=== PATIENT | male | born 1990 | race Caucasian/White ===

== ENCOUNTER 2016-04-06 10:15 | Emergency (ER) | payer MEDICARE, MEDICAID ==
--- NOTE | 2016-04-06 10:22 | ER Document Report ---
ED Medical Screen (RME) - General Chief Complaint: Cough Stated Complaint: COUGH Time seen by provider: 10:20 Mode of Arrival: Ambulatory Information source: Patient Notes: 35-year-old male presents to ED for cough cold for 2 weeks. Denies fever nausea or vomiting denies chest pain. TRAVEL OUTSIDE OF THE [place] IN LAST 30 DAYS: No - HPI Onset: Other - 2 weeks Onset/Duration: Gradual, Persistent Quality of pain: No pain Severity: None Pain Level: Denies Associated Symptoms: Cough (nonproductive). denies: Body/muscle aches, Fever Exacerbated by: Denies Relieved by: Denies Similar symptoms previously: Yes Recently seen / treated by doctor: No - Related Data Smoking: Non-smoker Frequency of alcohol use: None Drug Abuse: None Allergies/Adverse Reactions: Penicillins Allergy (Severe, Verified 04/06/16 10:17) Hives Past Medical History - Past Medical History Cardiac Medical History: Denies: Hx Coronary Artery Disease, Hx Heart Attack, Hx Hypertension Pulmonary Medical History: Denies: Hx Asthma, Hx Bronchitis, Hx COPD, Hx Pneumonia Neurological Medical History: Reports: Hx Seizures - as child. Denies: Hx Cerebrovascular Accident GI Medical History: Denies: Hx Hepatitis, Hx Hiatal Hernia, Hx Ulcer Musculoskeltal Medical History: Denies Hx Arthritis Infectious Medical History: Denies: Hx Hepatitis Past Surgical History: Denies: Hx Open Heart Surgery, Hx Pacemaker - Immunizations Hx Diphtheria, Pertussis, Tetanus Vaccination: Yes
[2016-04-06] MEDS ORDERED: BENZONATATE 100 MG CAPSULE PO ONE (10:41)
--- NOTE | 2016-04-06 10:45 | ER Document Report ---
ED General - General Chief Complaint: Cough Stated Complaint: COUGH Mode of Arrival: Ambulatory Notes: 25-year-old male here with complaints of cough productive of clear sputum sneezing runny nose over the past 2 weeks. He has not had any fevers or chills. He states that his grandmother was initially sick with similar symptoms and then he became sick. His mother then developed the same symptoms however she improved within 7 days. He has tried TheraFlu and DayQuil with some relief. He has also tried Tessalon Perles and "they are absolutely wonderful". TRAVEL OUTSIDE OF THE [place] IN LAST 30 DAYS: No - Related Data Allergies/Adverse Reactions: Penicillins Allergy (Severe, Verified 04/06/16 10:17) Hives Past Medical History - General Information source: Patient - Social History Smoking Status: Never Smoker Chew tobacco use (# tins/day): No Frequency of alcohol use: None Drug Abuse: None Family History: Reviewed & Not Pertinent Patient has suicidal ideation: No Patient has homicidal ideation: No - Past Medical History Cardiac Medical History: Denies: Hx Coronary Artery Disease, Hx Heart Attack, Hx Hypertension Pulmonary Medical History: Denies: Hx Asthma, Hx Bronchitis, Hx COPD, Hx Pneumonia Neurological Medical History: Reports: Hx Seizures - as child. Denies: Hx Cerebrovascular Accident Renal/ Medical History: Denies: Hx Peritoneal Dialysis GI Medical History: Denies: Hx Hepatitis, Hx Hiatal Hernia, Hx Ulcer Musculoskeltal Medical History: Denies Hx Arthritis Infectious Medical History: Denies: Hx Hepatitis Past Surgical History: Denies: Hx Open Heart Surgery, Hx Pacemaker - Immunizations Hx Diphtheria, Pertussis, Tetanus Vaccination: Yes Review of Systems - Review of Systems Notes: See history of present illness for pertinent positive review of systems; otherwise all review of systems have been reviewed and are negative Physical Exam - Vital signs Vitals: Temp Pulse Resp BP Pulse Ox 98.8 F 122 H 16 98/71 L 97 04/06/16 10:19 04/06/16 10:19 04/06/16 10:19 04/06/16 10:04/06/16 10:19 - Notes Notes: PHYSICAL EXAMINATION: GENERAL: Well-appearing and in no acute distress. HEAD: Atraumatic, normocephalic. EYES: Pupils equal round and reactive to light, extraocular movements intact, sclera anicteric, conjunctiva are normal. ENT: nares patent, oropharynx minimal erythema without tonsillar swelling or exudates. Moist mucous membranes. NECK: Normal range of motion, supple without lymphadenopathy LUNGS: CTAB and equal. No wheezes rales or rhonchi. HEART: Regular rhythm without murmurs; mildly tachycardic ABDOMEN: Soft, no tenderness. No guarding, no rebound EXTREMITIES: Normal range of motion, no pitting edema. No cyanosis. NEUROLOGICAL: Cranial nerves grossly intact. Normal sensory/motor exams. PSYCH: Normal mood, normal affect. SKIN: Warm, Dry, normal turgor, no rashes or lesions noted Course - Re-evaluation Re-evalutation: 04/06/16 10:44 MEDICAL DECISION MAKING: Concern for upper respiratory infection versus pneumonia versus allergic rhinitis Will obtain x-ray to evaluate for pneumonia and give dose of Tessalon Perle Patient understands and agrees to the plan of care 04/06/16 11:33 CXR negative for pneumonia Will treat w azithromycin as this may be walking pneumonia Instructed f/u PCP next few days Home w rx azithromycin and tessalon perles - Vital Signs Vital signs: Temp Pulse Resp BP Pulse Ox 98.8 F 122 H 20 98/71 L 97 04/06/16 10:19 04/06/16 10:19 04/06/16 10:45 04/06/16 10:19 04/06/16 10:19 Discharge - Discharge Clinical Impression: Upper respiratory infection Qualifiers: URI type: unspecified viral URI Qualified Code(s): J06.9 - Acute upper respiratory infection, unspecified; B97.89 - Other viral agents as the cause of diseases classified elsewhere Condition: Good Disposition: HOME, SELF-CARE Additional Instructions: You were seen in the emergency department at [facility]. Finish antibiotics and do not skip any doses. Use the cough medication as needed. Please followup with your primary physician in the next few days for further management/evaluation. Please return to the emergency department for worsening of symptoms or any symptom that you deem to be concerning or life-threatening. Thank you for allowing us to be part of your care. Prescriptions: Benzonatate [Tessalon Perle 100 mg Capsule] 100 mg PO Q8HP PRN #20 cap PRN Reason: Azithromycin [Zithromax 250 mg Tablet] 250 mg PO ASDIR #4 tablet
[2016-04-06] MEDS ORDERED: AZITHROMYCIN 250 MG TABLET PO ONE (10:46)
[2016-04-06 11:40] VITALS: BP 110/70
== END 2016-04-06 11:42 | disposition home or self-care (01) ==
LOC: ER 10:15
DX: J06.9 Acute upper respiratory infection, unspecified (principal); B97.89 Other viral agents as the cause of diseases classified elsewhere; R05 Cough; R06.7 Sneezing; R09.89 Other specified symptoms and signs involving the circulatory and respiratory systems
CPT/HCPCS: 99283; 71020; A9270 ×2

== ENCOUNTER 2016-04-27 20:46 | Emergency (ER) | payer MEDICARE, MEDICAID ==
--- NOTE | 2016-04-27 21:16 | ER Document Report ---
ED Medical Screen (RME) - General Stated Complaint: COUGH Notes: patient has a history of asthma and has run out nebulizers for atrovent. lungs CTAB I have greeted and performed a rapid initial assessment of this patient. A comprehensive ED assessment and evaluation of the patient, analysis of test results and completion of the medical decision making process will be conducted by additional ED providers. TRAVEL OUTSIDE OF THE [place] IN LAST 30 DAYS: No - Related Data Allergies/Adverse Reactions: Penicillins Allergy (Severe, Verified 04/06/16 10:17) Hives Past Medical History - Past Medical History Cardiac Medical History: Denies: Hx Coronary Artery Disease, Hx Heart Attack, Hx Hypertension Pulmonary Medical History: Denies: Hx Asthma, Hx Bronchitis, Hx COPD, Hx Pneumonia Neurological Medical History: Reports: Hx Seizures - as child. Denies: Hx Cerebrovascular Accident Renal/ Medical History: Denies: Hx Peritoneal Dialysis GI Medical History: Denies: Hx Hepatitis, Hx Hiatal Hernia, Hx Ulcer Musculoskeltal Medical History: Denies Hx Arthritis Infectious Medical History: Denies: Hx Hepatitis Past Surgical History: Denies: Hx Open Heart Surgery, Hx Pacemaker - Immunizations Hx Diphtheria, Pertussis, Tetanus Vaccination: Yes
[2016-04-27 21:18] VITALS: BP 100/65
--- NOTE | 2016-04-27 22:40 | ER Document Report ---
ED General - General Chief Complaint: Medication Refill Stated Complaint: COUGH Notes: Patient is a 25-year-old male presents with complaint of being out of his asthma inhaler. He's had some coughing congestion. No wheezing. No fevers. No other complaints at this time. He presents with a text from his mom on this found that he has been read. The text says that he needs to inhalers. He needs one for school and 1 for gym. She asks that we label the inhalers as 1 for gym. She also text to ask if he needed antibiotics or prednisone. Patient himself says he otherwise feels well. His no further concerns. He says he has a learning disability and that is why he wanted to repeat a text from his mom in case he forgot something to tell me. TRAVEL OUTSIDE OF THE [place] IN LAST 30 DAYS: No - Related Data Allergies/Adverse Reactions: Penicillins Allergy (Severe, Verified 04/27/16 21:14) Hives Past Medical History - Social History Smoking Status: Unknown if Ever Smoked Frequency of alcohol use: None Drug Abuse: None Family History: Reviewed & Not Pertinent Patient has suicidal ideation: No Patient has homicidal ideation: No - Past Medical History Cardiac Medical History: Denies: Hx Coronary Artery Disease, Hx Heart Attack, Hx Hypertension Pulmonary Medical History: Denies: Hx Asthma, Hx Bronchitis, Hx COPD, Hx Pneumonia Neurological Medical History: Reports: Hx Seizures - as child. Denies: Hx Cerebrovascular Accident Renal/ Medical History: Denies: Hx Peritoneal Dialysis GI Medical History: Denies: Hx Hepatitis, Hx Hiatal Hernia, Hx Ulcer Musculoskeltal Medical History: Denies Hx Arthritis Infectious Medical History: Denies: Hx Hepatitis Past Surgical History: Denies: Hx Open Heart Surgery, Hx Pacemaker - Immunizations Hx Diphtheria, Pertussis, Tetanus Vaccination: Yes Review of Systems - Review of Systems Notes: My Normal Review Basic REVIEW OF SYSTEMS: CONSTITUTIONAL : Denies fever, chills, or sweats. Denies recent illness. EENT: Some nasal congestion RESPIRATORY: Some cough GASTROINTESTINAL: Denies abdominal pain. Denies nausea, vomiting, or diarrhea. Denies constipation. Last BM: MUSCULOSKELETAL: Denies neck or back pain or joint pain or swelling. SKIN: Denies rash or skin lesions. NEUROLOGICAL: Denies altered mental status or loss of consciousness. ALL OTHER SYSTEMS REVIEWED AND NEGATIVE. Physical Exam - Vital signs Vitals: Temp Pulse Resp BP Pulse Ox 97.8 F 77 18 100/65 98 04/27/16 21:14 04/27/16 21:14 04/27/16 21:14 04/27/16 21:14 04/27/16 21:14 - Notes Notes: General Appearance: Well nourished, alert, cooperative, no acute distress, no obvious discomfort. Very well-appearing. No cough or nasal congestion during exam. Vitals: reviewed, See vital signs table. Head: no swelling or tenderness to the head Eyes: PERRL, EOMI, Conjuctiva clear Mouth: No decreasd moisture Throat: No tonsillar inflammation, No airway obstruction, No lymphadenopathy Neck: Supple, no neck tenderness, No thyromegaly Lungs: No wheezing, No rales, No rhonci, No accessory muscle use, good air exchange bilaterally. Heart: Normal rate, Regular rythm, No murmur, no rub Abdomen: Normal BS, soft, No rigidity, No abdominal tenderness, No guarding, no rebound, no abdominal masses, no organomegaly Extremities: good pulses in all extremities, no swelling or tenderness in the extremities, no edema. Skin: warm, dry, appropriate color, no rash Neuro: speech clear, oriented x 3, normal affect, responds appropriately to questions. Course - Vital Signs Vital signs: Temp Pulse Resp BP Pulse Ox 97.8 F 77 18 100/65 98 04/27/16 21:14 04/27/16 21:14 04/27/16 21:14 04/27/16 21:14 04/27/16 21:14 - Transfer of Care Notes: 04/27/16 22:45 Patient is very well-appearing. He has no wheezing on exam. His no increased work of breathing. He had no cough during exam. His no congestion on exam. I did give him 1 inhaler here and wrote a prescription for second inhaler. I informed him to have his mother labeled inhalers for him as to which one he should he wants for gym in which one he wants for other. Patient has no wheezing and no fever. I do not think he needs steroids or antibiotics this time. Patient encouraged return to ER if he feels worse or has any further concerns. Patient agrees with plan will be discharged home. Dictation of this chart was performed using voice recognition software; therefore, there may be some unintended grammatical errors. Discharge - Discharge Clinical Impression: Asthma Qualifiers: Asthma severity: unspecified severity Asthma complication type: uncomplicated Qualified Code(s): J45.909 - Unspecified asthma, uncomplicated Condition: Good Disposition: HOME, SELF-CARE Additional Instructions: Please return to ER immediately if you have a lot of wheezing, difficulty breathing, fevers, or feel unwell. You can use your inhaler as 2 puffs every 4 hours as needed for difficulty breathing. Prescriptions: Albuterol Sulfate [Proair HFA Inhalation Aerosol 8.5 gm MDI] 2 puff IH Q4H PRN # 1 mdi PRN Reason: Forms: Return to School
[2016-04-27] MEDS ORDERED: ALBUTEROL SULFATE HFA (90 MCG/PUFF) 8 GM MDI (1 MDI/ER DISP) IH SCH (22:45)
== END 2016-04-27 23:03 | disposition home or self-care (01) ==
LOC: ER 20:46
DX: J45.909 Unspecified asthma, uncomplicated (principal); R05 Cough; R09.81 Nasal congestion
CPT/HCPCS: 99281; J3490

== ENCOUNTER 2016-04-29 05:49 | Emergency (ER) | payer MEDICAID, MEDICARE ==
--- NOTE | 2016-04-29 07:10 | ER Document Report ---
ED General - General Chief Complaint: Flu Symptoms Stated Complaint: FLU LIKE SYMPTOMS TRAVEL OUTSIDE OF THE [place] IN LAST 30 DAYS: No - HPI Patient complains to provider of: cough sinus pressure wheezing Notes: Patient coming in with about states symptoms ongoing for the last 3-4 days. Patient states he was recent seen and was given a prescription for an inhaler stated that he also at that time thought he would improve with prednisone and want to ask for vials of albuterol however stated that the provider was dizzy before the past with his medications. Patient otherwise states no fevers no recent antibiotics no recent steroids. Patient otherwise is alert Distress upon my evaluation. - Related Data Allergies/Adverse Reactions: Penicillins Allergy (Severe, Verified 04/27/16 21:14) Hives Past Medical History - Social History Smoking Status: Unknown if Ever Smoked Family History: Reviewed & Not Pertinent Patient has suicidal ideation: No Patient has homicidal ideation: No - Past Medical History Cardiac Medical History: Denies: Hx Coronary Artery Disease, Hx Heart Attack, Hx Hypertension Pulmonary Medical History: Denies: Hx Asthma, Hx Bronchitis, Hx COPD, Hx Pneumonia Neurological Medical History: Reports: Hx Seizures - as child. Denies: Hx Cerebrovascular Accident Renal/ Medical History: Denies: Hx Peritoneal Dialysis GI Medical History: Denies: Hx Hepatitis, Hx Hiatal Hernia, Hx Ulcer Musculoskeltal Medical History: Denies Hx Arthritis Infectious Medical History: Denies: Hx Hepatitis Past Surgical History: Denies: Hx Open Heart Surgery, Hx Pacemaker - Immunizations Hx Diphtheria, Pertussis, Tetanus Vaccination: Yes Review of Systems - Review of Systems Constitutional: No symptoms reported EENT: No symptoms reported Cardiovascular: No symptoms reported Respiratory: Cough Gastrointestinal: No symptoms reported Genitourinary: No symptoms reported Male Genitourinary: No symptoms reported Musculoskeletal: No symptoms reported Skin: No symptoms reported Hematologic/Lymphatic: No symptoms reported Neurological/Psychological: No symptoms reported -: Yes All other systems reviewed and negative Physical Exam - Vital signs Vitals: Temp Pulse BP Pulse Ox 98.0 F 79 121/64 95 04/29/16 05:54 04/29/16 05:54 04/29/16 05:54 04/29/16 05:54 Interpretation: Normal - General General appearance: Appears well, Alert - HEENT Head: Normocephalic, Atraumatic Eyes: Normal Pupils: PERRL - Respiratory Respiratory status: No respiratory distress Chest status: Nontender Breath sounds: Normal Chest palpation: Normal - Cardiovascular Rhythm: Regular Heart sounds: Normal auscultation Murmur: No - Abdominal Inspection: Normal Distension: No distension Bowel sounds: Normal Tenderness: Nontender Organomegaly: No organomegaly - Back Back: Normal, Nontender - Extremities General upper extremity: Normal inspection, Nontender, Normal color, Normal ROM , Normal temperature General lower extremity: Normal inspection, Nontender, Normal color, Normal ROM , Normal temperature, Normal weight bearing. No: Columba's sign - Neurological Neuro grossly intact: Yes Cognition: Normal Orientation: AAOx4 Kala Coma Scale Eye Opening: Spontaneous Kala Coma Scale Verbal: Oriented [place] Coma Scale Motor: Obeys Commands [place] Coma Scale Total: 15 Speech: Normal Motor strength normal: LUE, RUE, LLE, RLE Sensory: Normal - Psychological Associated symptoms: Normal affect, Normal mood - Skin Skin Temperature: Warm Skin Moisture: Dry Skin Color: Normal Course - Re-evaluation Re-evalutation: 04/29/16 13:07 Patient will be treated with albuterol and prednisone. Prescription provided for nebulizer vials. Patient will be discharged home - Vital Signs Vital signs: Temp Pulse Resp BP Pulse Ox 97.9 F 70 20 113/65 98 04/29/16 07:23 04/29/16 07:23 04/29/16 07:23 04/29/16 07:23 04/29/16 07:23 Discharge - Discharge Clinical Impression: Asthma Qualifiers: Asthma severity: unspecified severity Asthma complication type: uncomplicated Qualified Code(s): J45.909 - Unspecified asthma, uncomplicated URI (upper respiratory infection) Qualifiers: URI type: supraglottitis Airway obstruction: without obstruction Qualified Code (s): J04.30 - Supraglottitis, unspecified, without obstruction Condition: Good Disposition: HOME, SELF-CARE Instructions: Upper Respiratory Illness ([facility]), Asthma ([facility]) Additional Instructions: Take medication as prescribed. Prescriptions: Albuterol Sulfate [Albuterol Sulfate 2.5mg/3 mL] 2.5 mg IH Q4 #30 ml Prednisone [Deltasone 20 mg Tablet] 40 mg PO DAILY 5 Days
[2016-04-29 07:25] VITALS: BP 113/65
== END 2016-04-29 07:25 | disposition home or self-care (01) ==
LOC: ER 05:49
DX: J45.909 Unspecified asthma, uncomplicated (principal); J04.30 Supraglottitis, unspecified, without obstruction; Z88.0 Allergy status to penicillin
CPT/HCPCS: 99283

== ENCOUNTER 2016-10-19 20:06 | Emergency (ER) | payer MEDICARE, MEDICAID ==
[2016-10-19 20:30] VITALS: BP 127/76
== END 2016-10-19 21:05 | disposition left against medical advice (07) ==
LOC: ER 20:06
DX: Z53.9 Procedure and treatment not carried out, unspecified reason (principal); L98.9 Disorder of the skin and subcutaneous tissue, unspecified

== ENCOUNTER 2016-10-20 07:05 | Emergency (ER) | payer MEDICARE, MEDICAID ==
[2016-10-20 07:12] VITALS: BP 120/72
--- NOTE | 2016-10-20 07:43 | ER Document Report ---
ED General - General Chief Complaint: Skin Problem Stated Complaint: SKIN PROBLEM Time Seen by Provider: 10/20/16 07:35 TRAVEL OUTSIDE OF THE [place] IN LAST 30 DAYS: No - HPI Patient complains to provider of: Poison [place] left arm Notes: Patient is coming to the ER today for evaluation of poison madison on his left arm. Patient states that this is very pruritic. Patient denies taking or using any Benadryl cream steroid cream or oral Benadryl for his symptoms is that he does not have any at home. Patient otherwise denies any past medical history. Patient was initially triaged around 11:00 night prior also at that time requesting evaluation for his poison madison and a refill of his asthma inhalers. Patient alert prior to being seen. Patient denies any fever chills nausea vomiting diarrhea - Related Data Allergies/Adverse Reactions: Penicillins Allergy (Severe, Verified 04/27/16 21:14) Hives Past Medical History - Social History Smoking Status: Unknown if Ever Smoked Family History: Reviewed & Not Pertinent Patient has suicidal ideation: No Patient has homicidal ideation: No - Past Medical History Cardiac Medical History: Denies: Hx Coronary Artery Disease, Hx Heart Attack, Hx Hypertension Pulmonary Medical History: Denies: Hx Asthma, Hx Bronchitis, Hx COPD, Hx Pneumonia Neurological Medical History: Reports: Hx Seizures - as child. Denies: Hx Cerebrovascular Accident Renal/ Medical History: Denies: Hx Peritoneal Dialysis GI Medical History: Denies: Hx Hepatitis, Hx Hiatal Hernia, Hx Ulcer Musculoskeltal Medical History: Denies Hx Arthritis Infectious Medical History: Denies: Hx Hepatitis Past Surgical History: Denies: Hx Open Heart Surgery, Hx Pacemaker - Immunizations Hx Diphtheria, Pertussis, Tetanus Vaccination: Yes Review of Systems - Review of Systems Constitutional: No symptoms reported EENT: No symptoms reported Cardiovascular: No symptoms reported Respiratory: No symptoms reported Gastrointestinal: No symptoms reported Genitourinary: No symptoms reported Male Genitourinary: No symptoms reported Musculoskeletal: No symptoms reported Skin: Other - rash left forearm Hematologic/Lymphatic: No symptoms reported Neurological/Psychological: No symptoms reported Physical Exam - Vital signs Vitals: Temp Pulse Resp BP Pulse Ox 98.3 F 73 16 120/72 98 10/20/16 07:06 10/20/16 07:06 10/20/16 07:06 10/20/16 07:06 10/20/16 07:06 Interpretation: Normal - General General appearance: Appears well, Alert - HEENT Head: Normocephalic, Atraumatic Eyes: Normal Pupils: PERRL - Respiratory Respiratory status: No respiratory distress Chest status: Nontender Breath sounds: Normal Chest palpation: Normal - Cardiovascular Rhythm: Regular Heart sounds: Normal auscultation Murmur: No - Abdominal Inspection: Normal Distension: No distension Bowel sounds: Normal Tenderness: Nontender Organomegaly: No organomegaly - Back Back: Normal, Nontender - Extremities General upper extremity: Normal inspection, Nontender, Normal color, Normal ROM , Normal temperature General lower extremity: Normal inspection, Nontender, Normal color, Normal ROM , Normal temperature, Normal weight bearing. No: Columba's sign - Neurological Neuro grossly intact: Yes Cognition: Normal Orientation: AAOx4 [place] Coma Scale Eye Opening: Spontaneous [place] Coma Scale Verbal: Oriented [place] Coma Scale Motor: Obeys Commands [place] Coma Scale Total: 15 Speech: Normal Motor strength normal: LUE, RUE, LLE, RLE Sensory: Normal - Psychological Associated symptoms: Normal affect, Normal mood - Skin Skin Temperature: Warm Skin Moisture: Dry Skin Color: Other - Patient with mild blistering contact dermatitis consistent with poison [place] exposure in the antecubital fossa left arm no other signs of rashes on the patient's torso Course - Re-evaluation Re-evalutation: 10/20/16 15:10 Patient will be given a prescription for prednisone encouraged to use over-the- counter Benadryl cream and tablets for control of the itching. At discharge I was informed by nursing staff that the patient's mother called requesting a shot of steroids however patient is able to tolerate p.o. no need for IM injection at this time - Vital Signs Vital signs: Temp Pulse Resp BP Pulse Ox 98.3 F 73 16 120/72 98 10/20/16 07:09 10/20/16 07:09 10/20/16 07:09 10/20/16 07:09 10/20/16 07:09 Discharge - Discharge Clinical Impression: Poison [place] dermatitis Condition: Good Disposition: HOME, SELF-CARE Instructions: Contact Dermatitis ([facility]), Poison [place] ([facility]), Use of Diphenhydramine, Topical Steroid Cream or Ointment ([facility]) Additional Instructions: Please take medication as directed. Prescriptions: Albuterol Sulfate [Proair HFA] 1 - 2 puff IH Q4 PRN #1 inhaler PRN Reason: Prednisone [Deltasone 20 mg Tablet] 3 tab PO DAILY 5 Days
== END 2016-10-20 08:01 | disposition home or self-care (01) ==
LOC: ER 07:05
DX: L23.7 Allergic contact dermatitis due to plants, except food (principal); Z88.0 Allergy status to penicillin
CPT/HCPCS: 99283

== ENCOUNTER 2017-12-24 03:19 | Emergency (ER) | payer MEDICARE, MEDICAID ==
[2017-12-24 03:25] VITALS: BP 134/87
[2017-12-24] MEDS ORDERED: PREDNISONE 20 MG TABLET PO ONE (03:46)
--- NOTE | 2017-12-24 03:53 | ER Document Report ---
ED General - General Chief Complaint: Rash Stated Complaint: RASH Time Seen by Provider: 12/24/17 03:40 Notes: Patient is a 27-year-old male who presents with complaint of a rash. He says he was working outside and exposed to poison stephanie. He has some rash on his hands and his arm. Also somewhat over the dorsum of his foot and toes from where he is wearing sandals. He says it is pruritic. Some painful. No fevers. No difficulty breathing. No other complaints at this time. TRAVEL OUTSIDE OF THE [place] IN LAST 30 DAYS: No - Related Data Allergies/Adverse Reactions: Penicillins Allergy (Severe, Verified 04/27/16 21:14) Hives Past Medical History - Social History Smoking Status: Never Smoker Frequency of alcohol use: None Drug Abuse: None Family History: Reviewed & Not Pertinent Patient has suicidal ideation: No Patient has homicidal ideation: No - Past Medical History Cardiac Medical History: Denies: Hx Coronary Artery Disease, Hx Heart Attack, Hx Hypertension Pulmonary Medical History: Denies: Hx Asthma, Hx Bronchitis, Hx COPD, Hx Pneumonia Neurological Medical History: Reports: Hx Seizures - as child. Denies: Hx Cerebrovascular Accident Renal/ Medical History: Denies: Hx Peritoneal Dialysis GI Medical History: Denies: Hx Hepatitis, Hx Hiatal Hernia, Hx Ulcer Musculoskeletal Medical History: Denies Hx Arthritis Infectious Medical History: Denies: Hx Hepatitis Past Surgical History: Denies: Hx Open Heart Surgery, Hx Pacemaker - Immunizations Hx Diphtheria, Pertussis, Tetanus Vaccination: Yes Review of Systems - Review of Systems Notes: My Normal Review Basic REVIEW OF SYSTEMS: CONSTITUTIONAL : Denies fever, chills, or sweats. Denies recent illness. EENT: Denies eye, ear, throat, or mouth pain or symptoms. Denies nasal or sinus congestion. RESPIRATORY: Denies cough, cold, or chest congestion. Denies shortness of breath, difficulty breathing, or wheezing. GASTROINTESTINAL: Denies abdominal pain. Denies nausea, vomiting, or diarrhea. Denies constipation. Last BM: SKIN: Rash Physical Exam - Vital signs Vitals: Temp Pulse Resp BP Pulse Ox 97.8 F 90 18 134/87 H 98 12/24/17 03:24 12/24/17 03:24 12/24/17 03:24 12/24/17 03:24 12/24/17 03:24 - Notes Notes: General Appearance: Well nourished, alert, cooperative, no acute distress, no obvious discomfort. Appearing. Vitals: reviewed, See vital signs table. Eyes: PERRL, EOMI, Conjuctiva clear Mouth: No decreasd moisture Neck: Supple, No swelling Lungs: No wheezing, No rales, No rhonci, No accessory muscle use, good air exchange bilaterally. Extremities: good pulses in all extremities, no swelling or tenderness in the extremities, no edema. Skin: Mild maculopapular rash is easily blanchable and pruritic. Nonpainful to palpation. Consistent with a contact dermatitis. Neuro: speech clear, oriented x 3, normal affect, responds appropriately to questions. Course - Re-evaluation Re-evalutation: 12/24/17 04:08 Patient has a rash and history consistent with poison stephanie exposure. Patient will be placed on prednisone. He does not have any respiratory or pharyngeal symptoms. I encourage him return to ER immediately for difficulty breathing, difficulty swallowing, worsening of the rash, or if he feels unwell. Patient agrees with plan will be discharged home. Dictation of this chart was performed using voice recognition software; therefore, there may be some unintended grammatical errors. - Vital Signs Vital signs: Temp Pulse Resp BP Pulse Ox 97.8 F 90 18 134/87 H 98 12/24/17 03:24 12/24/17 03:24 12/24/17 03:24 12/24/17 03:24 12/24/17 03:24 Discharge - Discharge Clinical Impression: Rash Condition: Good Disposition: HOME, SELF-CARE Additional Instructions: Please take the prednisone as prescribed. please take Benadryl as 25mg every 6 hours for itching. Please return to the ER if you have worsening of the rash, fevers, difficulty breathing, or feel unwell. Prescriptions: Prednisone 10 mg PO ASDIR #42 tablet
== END 2017-12-24 03:54 | disposition home or self-care (01) ==
LOC: ER 03:19
DX: R21 Rash and other nonspecific skin eruption (principal); L29.8 Other pruritus; Z88.0 Allergy status to penicillin
CPT/HCPCS: 99282; A9270; J7512

== ENCOUNTER 2018-01-10 01:01 | Emergency (ER) | payer MEDICARE, MEDICAID ==
[2018-01-10 01:07] VITALS: BP 123/70
--- NOTE | 2018-01-10 01:31 | ER Document Report ---
ED General - General Chief Complaint: Ankle Pain Stated Complaint: ankle pain Time Seen by Provider: 01/10/18 01:06 Mode of Arrival: Ambulatory Information source: Patient Notes: This is a 27-year-old man that presents to the emergency room with left ankle pain and swelling in after twisting the ankle. TRAVEL OUTSIDE OF THE [place] IN LAST 30 DAYS: No - HPI Onset: Last week Onset/Duration: Gradual Quality of pain: Dull Severity: Mild Pain Level: 1 Associated symptoms: denies: Chills, Fever, Shortness of breath Exacerbated by: Movement Relieved by: Remaining still Similar symptoms previously: Yes Recently seen / treated by doctor: No - Related Data Allergies/Adverse Reactions: Penicillins Allergy (Severe, Verified 04/27/16 21:14) Hives Past Medical History - General Information source: Patient - Social History Smoking Status: Unknown if Ever Smoked Cigarette use (# per day): No Chew tobacco use (# tins/day): No Frequency of alcohol use: None Drug Abuse: None Lives with: Alone Family History: Reviewed & Not Pertinent Patient has suicidal ideation: No Patient has homicidal ideation: No - Past Medical History Cardiac Medical History: Denies: Hx Coronary Artery Disease, Hx Heart Attack, Hx Hypertension Pulmonary Medical History: Denies: Hx Asthma, Hx Bronchitis, Hx COPD, Hx Pneumonia Neurological Medical History: Reports: Hx Seizures - as child. Denies: Hx Cerebrovascular Accident Renal/ Medical History: Denies: Hx Peritoneal Dialysis GI Medical History: Denies: Hx Hepatitis, Hx Hiatal Hernia, Hx Ulcer Musculoskeletal Medical History: Denies Hx Arthritis Infectious Medical History: Denies: Hx Hepatitis Past Surgical History: Denies: Hx Open Heart Surgery, Hx Pacemaker - Immunizations Hx Diphtheria, Pertussis, Tetanus Vaccination: Yes Review of Systems - Review of Systems Constitutional: denies: Chills, Fever EENT: No symptoms reported Cardiovascular: No symptoms reported Respiratory: No symptoms reported Gastrointestinal: No symptoms reported Genitourinary: No symptoms reported Male Genitourinary: No symptoms reported Musculoskeletal: See HPI Skin: No symptoms reported Hematologic/Lymphatic: No symptoms reported Neurological/Psychological: No symptoms reported Physical Exam - Vital signs Vitals: Temp Pulse Resp BP Pulse Ox 97.8 F 82 18 123/70 99 01/10/18 01:06 01/10/18 01:06 01/10/18 01:06 01/10/18 01:06 01/10/18 01:06 Notes: Physical exam: GENERAL: Patient is alert and oriented, no acute distress HEAD: Atraumatic, normocephalic. EYES: Pupils equal round and reactive to light, extraocular movements intact, sclera anicteric, conjunctiva are normal. ENT:Moist mucous membranes. NECK: Normal range of motion, supple without obvious mass. EXTREMITIES: Left knee: Full range of motion. No tenderness over the proximal fibula. Left ankle: Nontender in the medial aspect of the malleolus. Patient is tender over the distal portion of the lateral malleolus. There is swelling laterally. There is tenderness over just inferior to the malleolus. Dorsal pedal pulses good. Cap refill is good. Skin is clear. Patient does have an abrasion over the medial aspect of the proximal foot. There is no evidence of cellulitis. NEUROLOGICAL: Cranial nerves II through XII grossly intact. Normal speech, moving all extremities. PSYCH: Normal mood, normal affect. SKIN: Warm, Dry, normal turgor, no rashes or lesions noted. Course - Vital Signs Vital signs: Temp Pulse Resp BP Pulse Ox 97.8 F 82 18 123/70 99 01/10/18 01:06 01/10/18 01:06 01/10/18 01:06 01/10/18 01:06 01/10/18 01:06 - Diagnostic Test Radiology reviewed: Image reviewed - X-ray shows no obvious bony injury Discharge - Discharge Clinical Impression: Left ankle sprain Condition: Stable Disposition: HOME, SELF-CARE Additional Instructions: Use the splint for lateral support for the next week or 2. You can ice the ankle at night keep it elevated. Take ibuprofen every 4-6 hours for the next few days. Follow-up with an orthopedic surgeon for persistent pain or swelling. I left the number for the orthopedic surgeon on the chart. Referrals: PAUL CRUZ MD [ACTIVE STAFF] - Follow up as needed (This is the number for the orthopedic surgeon)
--- NOTE | 2018-01-10 01:57 | RADIOLOGY REPORT (SQ) ---
CLINICAL HISTORY: lat malleolar tender-swelling COMPARISON: None. TECHNIQUE: XR ANKLE 3 OR MORE VIEWS 01/10/2018 1:26 AM CDT FINDINGS: There is no fracture. Joint spaces are preserved. There is mild lateral soft tissue swelling. IMPRESSION: No acute osseous findings.
== END 2018-01-10 01:51 | disposition home or self-care (01) ==
LOC: ER 01:01
PROC: 2W3RX1Z Immobilization of Left Lower Leg using Splint (ICD-10-PCS; principal; 2018-01-10)
DX: M25.572 Pain in left ankle and joints of left foot (principal); Z88.0 Allergy status to penicillin; S93.402A Sprain of unspecified ligament of left ankle, initial encounter; X58.XXXA Exposure to other specified factors, initial encounter; Y93.9 Activity, unspecified; Y92.9 Unspecified place or not applicable; Y99.9 Unspecified external cause status
CPT/HCPCS: 99283; 73610; 29515; L1902

== ENCOUNTER 2018-04-26 08:32 | Emergency (ER) | payer MEDICARE, MEDICAID ==
[2018-04-26 08:38] VITALS: BP 125/79
--- NOTE | 2018-04-26 09:49 | ER Document Report ---
HPI - HPI Patient complains to provider of: Need for a new ankle splint Time Seen by Provider: 04/26/18 09:22 Quality of pain: No pain, Achy Pain Level: Denies Context: Patient states that he was treated for a sprained ankle 4 months ago and was given a stirrup splint. Patient states he is continue to wear the splint every day since then and it is starting to become worn and he is requesting a new splint today. Patient denies any new trauma to the ankle. Patient denies following up with either her primary doctor or with orthopedics. Patient states that he only has pain if he rolls his ankle laterally but does not have pain otherwise. Associated Symptoms: Other Exacerbated by: Movement Relieved by: Denies Similar symptoms previously: Yes Recently seen / treated by doctor: No - ROS ROS below otherwise negative: Yes Systems Reviewed and Negative: Yes All other systems reviewed and negative - NEURO Neurology: DENIES: Weakness - MUSCULOSKELETAL Musculoskeletal: REPORTS: Extremity pain. DENIES: Swelling - DERM Skin Color: Normal Skin Problems: None Past Medical History - General Information source: Patient - Social History Smoking Status: Never Smoker Frequency of alcohol use: None Drug Abuse: None Occupation: none Family History: Reviewed & Not Pertinent Patient has suicidal ideation: No Patient has homicidal ideation: No - Medical History Medical History: Other - Learning disability - Past Medical History Cardiac Medical History: Pulmonary Medical History: Neurological Medical History: Reports: Hx Seizures - as child. Denies: Hx Cerebrovascular Accident Renal/ Medical History: Denies: Hx Peritoneal Dialysis Musculoskeletal Medical History: Infectious Medical History: Denies: Hx Hepatitis Surgical Hx: Negative - Immunizations Hx Diphtheria, Pertussis, Tetanus Vaccination: Yes Vertical Provider Document - CONSTITUTIONAL Agree With Documented VS: Yes Exam Limitations: No Limitations General Appearance: WD/WN, No Apparent Distress - INFECTION CONTROL TRAVEL OUTSIDE OF THE [place] IN LAST 30 DAYS: No - HEENT HEENT: Atraumatic, Normocephalic - NECK Neck: Normal Inspection - RESPIRATORY Respiratory: Breath Sounds Normal, No Respiratory Distress - CARDIOVASCULAR Cardiovascular: Regular Rate, Regular Rhythm Pulses: Normal: Dorsalis pedis - MUSCULOSKELETAL/EXTREMETIES Musculoskeletal/Extremeties: MAEW, FROM, Non-Tender - Area nontender and less patient rolls his ankle laterally to the side - NEURO Level of Consciousness: Awake, Alert, Appropriate Motor/Sensory: No Motor Deficit - DERM Integumentary: Warm, Dry, No Rash Course - Re-evaluation Re-evalutation: 04/26/18 09:[address] Regan regarding patient presentation. Agrees with plan to not reapply a stirrup splint at this time as patient should be following up with orthopedics for further evaluation and should not continue to be immobilized in the joint. - Vital Signs Vital signs: Temp Pulse Resp BP Pulse Ox 99.5 F 96 16 125/79 96 04/26/18 08:37 04/26/18 08:37 04/26/18 08:37 04/26/18 08:37 04/26/18 08:37 Discharge - Discharge Clinical Impression: request for replacement splint Condition: Stable Disposition: HOME, SELF-CARE Instructions: Acetaminophen, Use of Bhhi-[id number]-Ldikwre Ibuprofen ([facility]) Additional Instructions: Return immediately for any new or worsening symptoms Followup with your primary care provider, call tomorrow to make a followup appointment You should follow-up with orthopedics You should not be continue to immobilize the joint. If you are having any persistent pain or problems this is an indication for additional evaluation by an orthopedic doctor. The number will be provided below, call their office today for an appointment. Referrals: [facility] [Provider Group] - Follow up tomorrow
== END 2018-04-26 09:55 | disposition home or self-care (01) ==
LOC: ER 08:32
DX: S93.409D Sprain of unspecified ligament of unspecified ankle, subsequent encounter (principal); X58.XXXD Exposure to other specified factors, subsequent encounter
CPT/HCPCS: 99282